=== PATIENT | male | born 1945 | race Caucasian/White ===

== ENCOUNTER 2020-10-05 22:22 | Inpatient (IN) | payer MEDICARE ==
[~2020-10-05] VITALS: Ht 182.8 cm; Wt 107.5 kg
[2020-10-05 23:46] LABS: BASO % 0.5 % (0.0-1.0); EOS # 0.4 10*3/uL (0.0-0.4); EOS % 4.8 % (1.0-4.0); HEMATOCRIT 36.8 % (42.0-52.0); LYMPH # 0.8 10*3/uL (1.3-4.4); LYMPH % 10.1 % (27.0-41.0); MEAN CELL VOLUME 96.6 fl (80.0-94.0); MEAN CORPUSCULAR HGB CONC 32.1 g/dl (33.0-37.0); MEAN PLATELET VOLUME 11.5 fl (9.6-12.3); MONO # 0.9 10*3/uL (0.1-1.0); NEUT # 5.6 10*3/uL (2.3-7.9); NEUT % 73.1 % (47.0-73.0); PLATELET COUNT AUTOMATED 178 10*3/uL (130-400); RED BLOOD COUNT 3.81 10*6/uL (4.50-5.90); RED CELL DISTRI WIDTH 13.6 % (0-14.5); WHITE BLOOD COUNT 7.7 10*3/uL (4.8-10.8)
[2020-10-05 23:56] LABS: INTERNATIONAL NORM RATIO 1.4 (2.0-3.5)
[2020-10-06] VITALS (10 sets, daily range): BP systolic 82–144; BP diastolic 44–99
[2020-10-06 00:06] LABS: CREATININE 1.62 mg/dL (0.70-1.30); POTASSIUM 4.8 mmol/L (3.5-5.1); TOTAL PROTEIN 6.2 gm/dL (6.4-8.2)
[2020-10-06 05:56] LABS: BASO % 0.4 % (0.0-1.0); EOS # 0.1 10*3/uL (0.0-0.4); EOS % 1.6 % (1.0-4.0); HEMATOCRIT 35.4 % (42.0-52.0); LYMPH # 0.7 10*3/uL (1.3-4.4); LYMPH % 7.7 % (27.0-41.0); MEAN CELL VOLUME 98.1 fl (80.0-94.0); MEAN CORPUSCULAR HGB 30.7 pg (27.0-31.0); MEAN CORPUSCULAR HGB CONC 31.4 g/dl (33.0-37.0); MEAN PLATELET VOLUME 12.3 fl (9.6-12.3); MONO # 1.1 10*3/uL (0.1-1.0); MONO % 12.9 % (3.0-9.0); NEUT # 6.6 10*3/uL (2.3-7.9); NEUT % 76.9 % (47.0-73.0); PLATELET COUNT AUTOMATED 157 10*3/uL (130-400); RED BLOOD COUNT 3.61 10*6/uL (4.50-5.90); RED CELL DISTRI WIDTH 13.5 % (0-14.5); WHITE BLOOD COUNT 8.6 10*3/uL (4.8-10.8)
[2020-10-06 06:12] LABS: ALBUMIN 2.8 gm/dl (3.1-4.5); CREATININE 1.41 mg/dL (0.70-1.30); POTASSIUM 4.5 mmol/L (3.5-5.1); TOTAL PROTEIN 5.8 gm/dL (6.4-8.2)
[2020-10-06 06:18] LABS: THYROID STIM HORMONE (HS) 2.1 uIU/ml (0.358-4.75)
[2020-10-07] VITALS (7 sets, daily range): BP systolic 82–119; BP diastolic 40–84
[2020-10-07 06:28] LABS: BASO % 0.1 % (0.0-1.0); HEMATOCRIT 30.6 % (42.0-52.0); LYMPH # 0.7 10*3/uL (1.3-4.4); LYMPH % 7.1 % (27.0-41.0); MEAN CELL VOLUME 97.8 fl (80.0-94.0); MEAN CORPUSCULAR HGB 30.7 pg (27.0-31.0); MEAN CORPUSCULAR HGB CONC 31.4 g/dl (33.0-37.0); MEAN PLATELET VOLUME 11.3 fl (9.6-12.3); MONO # 1.2 10*3/uL (0.1-1.0); MONO % 12.6 % (3.0-9.0); NEUT # 7.7 10*3/uL (2.3-7.9); NEUT % 79.6 % (47.0-73.0); PLATELET COUNT AUTOMATED 135 10*3/uL (130-400); RED BLOOD COUNT 3.13 10*6/uL (4.50-5.90); RED CELL DISTRI WIDTH 13.4 % (0-14.5); WHITE BLOOD COUNT 9.7 10*3/uL (4.8-10.8)
[2020-10-07 06:34] LABS: INTERNATIONAL NORM RATIO 1.4 (2.0-3.5)
[2020-10-08 06:54] LABS: BASO % 0.3 % (0.0-1.0); EOS # 0.2 10*3/uL (0.0-0.4); EOS % 1.8 % (1.0-4.0); HEMATOCRIT 29.1 % (42.0-52.0); LYMPH % 11.4 % (27.0-41.0); MEAN CORPUSCULAR HGB CONC 31.3 g/dl (33.0-37.0); MEAN PLATELET VOLUME 12.2 fl (9.6-12.3); MONO # 1.2 10*3/uL (0.1-1.0); MONO % 13.6 % (3.0-9.0); NEUT # 6.3 10*3/uL (2.3-7.9); NEUT % 72.4 % (47.0-73.0); PLATELET COUNT AUTOMATED 129 10*3/uL (130-400); RED BLOOD COUNT 2.94 10*6/uL (4.50-5.90); RED CELL DISTRI WIDTH 13.7 % (0-14.5); WHITE BLOOD COUNT 8.8 10*3/uL (4.8-10.8)
[2020-10-08 06:57] LABS: INTERNATIONAL NORM RATIO 1.2 (2.0-3.5)
[2020-10-08 12:00] VITALS: BP 126/52
[2020-10-08] MEDS ORDERED: ASPIRIN ADULT L81 M2 PO (13:12)
[2020-10-08] MEDS ORDERED: Percocet 325 MG1 TAB PO (13:12)
[2020-10-08] MEDS ORDERED: VITAMIN D350 MC2 PO (13:12)
[2020-10-08 16:00] VITALS: BP 150/65
== END 2020-10-08 17:48 | DRG 480 ==
LOC: ED 22:22 → EDHOLD 23:44 → 5E 23:44
PROVIDERS: Hospitalist; Internal Medicine; Orthopaedic Surgery; ADMIT Family Medicine; ATTEND Family Medicine
PROC: 0QH706Z Insertion of Intramedullary Internal Fixation Device into Left Upper Femur, Open Approach (ICD-10-PCS; principal; 2020-10-06)
DX: S72.142A Displaced intertrochanteric fracture of left femur, initial encounter for closed fracture (principal); N17.0 Acute kidney failure with tubular necrosis; E83.41 Hypermagnesemia; D53.9 Nutritional anemia, unspecified; M19.90 Unspecified osteoarthritis, unspecified site; I10 Essential (primary) hypertension; Z20.822 Contact with and (suspected) exposure to COVID-19; W18.39XA Other fall on same level, initial encounter; Y93.89 Activity, other specified; Y92.098 Other place in other non-institutional residence as the place of occurrence of the external cause; Z95.828 Presence of other vascular implants and grafts; I69.344 Monoplegia of lower limb following cerebral infarction affecting left non-dominant side; I25.2 Old myocardial infarction; Z87.442 Personal history of urinary calculi; Z82.49 Family history of ischemic heart disease and other diseases of the circulatory system; Z84.89 Family history of other specified conditions; Y99.8 Other external cause status

== ENCOUNTER → 2020-11-22 | Outpatient (CLI) | payer MEDICARE ==
[~2020-11-22] MED LIST: ASPIRIN ADULT L81 M2 PO; Percocet 325 MG1 TAB PO; VITAMIN D350 MC2 PO
== END | disposition home or self-care (01) ==
LOC: ORTHO 11:11
PROVIDERS: ATTEND Orthopaedic Surgery
DX: S72.142A Displaced intertrochanteric fracture of left femur, initial encounter for closed fracture (principal); X58.XXXA Exposure to other specified factors, initial encounter; Y93.89 Activity, other specified; Y92.89 Other specified places as the place of occurrence of the external cause; Y99.8 Other external cause status

== ENCOUNTER → 2021-01-13 | Outpatient (CLI) | payer MEDICARE | END | disposition home or self-care (01) | LOC: ORTHO 00:43 | PROVIDERS: ATTEND Orthopaedic Surgery | DX: I70.90 Unspecified atherosclerosis (principal); M25.562 Pain in left knee ==

== ENCOUNTER → 2021-05-05 | Outpatient (CLI) | payer MEDICARE | END | disposition home or self-care (01) | LOC: ORTHO 00:44 | PROVIDERS: ATTEND Orthopaedic Surgery | DX: S72.142D Displaced intertrochanteric fracture of left femur, subsequent encounter for closed fracture with routine healing (principal); X58.XXXD Exposure to other specified factors, subsequent encounter ==

== ENCOUNTER → 2021-05-14 | Outpatient (CLI) | payer MEDICARE | END | disposition home or self-care (01) | LOC: NM 09:31 | PROVIDERS: ATTEND Orthopaedic Surgery | DX: S72.142D Displaced intertrochanteric fracture of left femur, subsequent encounter for closed fracture with routine healing (principal); X58.XXXD Exposure to other specified factors, subsequent encounter ==

== ENCOUNTER 2024-01-27 05:15 | Emergency (ER) | payer MEDICARE ==
[~2024-01-27] VITALS: Ht 182.8 cm; Wt 79.4 kg
[~2024-01-27 05:15] MED LIST changes: +ALLOPURINOL300 MG PO; +AMLODIPINE BESYL5 MG PO; +ATORVASTATIN CA20 M1 PO; +BUPROPION HYDR150 M3 PO; +BUSPIRONE HCL30 MG PO; +FUROSEMIDE20 M1 PO; +HYDROCODONE-AC1 EAC2 PO; +OMNICEF300 MG PO; +Rocaltrol0.25 MCG PO; +Synthroid,Levo50 MCG PO; +TAMSULOSIN HCL0.4 MG PO; +VENLAFAXINE HY150 M2 PO
[2024-01-27 06:02] LABS: BASO % 0.6 % (0.0-1.0); EOS # 0.3 10*3/uL (0.0-0.4); EOS % 4.2 % (1.0-4.0); HEMATOCRIT 40.4 % (42.0-52.0); LYMPH # 0.9 10*3/uL (1.3-4.4); LYMPH % 14.2 % (27.0-41.0); MEAN CELL VOLUME 95.5 fl (80.0-94.0); MEAN CORPUSCULAR HGB 30.3 pg (27.0-31.0); MEAN CORPUSCULAR HGB CONC 31.7 g/dl (33.0-37.0); MEAN PLATELET VOLUME 11.9 fl (9.6-12.3); MONO # 0.8 10*3/uL (0.1-1.0); MONO % 11.5 % (3.0-9.0); NEUT # 4.5 10*3/uL (2.3-7.9); NEUT % 67.8 % (47.0-73.0); PLATELET COUNT AUTOMATED 199 10*3/uL (130-400); RED BLOOD COUNT 4.23 10*6/uL (4.50-5.90); RED CELL DISTRI WIDTH 14.6 % (0-14.5); WHITE BLOOD COUNT 6.6 10*3/uL (4.8-10.8)
[2024-01-27 06:04] LABS: POTASSIUM 4.3 mmol/L (3.4-5.1)
[2024-01-27] MEDS ORDERED: Ketorolac Tromethamine 15 MG/ML VIAL IV ONE (07:15)
[2024-01-27 07:59] LABS: ACT PARTIAL THROMBO TIME 31.5 SECONDS (20.0-32.1)
[2024-01-27 08:04] LABS: BILIRUBIN Negative (Negative); BLOOD 3+ (Negative); GLUCOSE Negative (Negative); KETONE Trace (Negative); NITRITE Negative (Negative); PH 6.5 (4.5-8.0); SPECIFIC GRAVITY 1.025 (1.001-1.030)
[2024-01-27 08:05] LABS: CLARITY Turbid (Clear); COLOR Red (Yellow); LEUKO ESTERASE Trace (Negative)
[2024-01-27 08:31] LABS: RBC TNTC rbc/hpf (0-2)
[2024-01-27] MEDS ORDERED: BUMETANIDE 1 MG/4 ML VIAL IV ONE (10:10)
[2024-01-27] MEDS ORDERED: NITROGLYCERIN 1 IN PACKET T ONE (10:10)
[2024-01-27 10:29] LABS: HEMATOCRIT 38.3 % (42.0-52.0)
== END 2024-01-27 19:23 | disposition home or self-care (01) ==
LOC: ED 05:15
PROVIDERS: Emergency Medicine; Internal Medicine
DX: R31.9 Hematuria, unspecified (principal); Z98.890 Other specified postprocedural states; Z95.5 Presence of coronary angioplasty implant and graft; I10 Essential (primary) hypertension; I25.2 Old myocardial infarction; M19.90 Unspecified osteoarthritis, unspecified site

== ENCOUNTER 2024-07-07 10:57 | Emergency (ER) | payer MEDICARE ==
[~2024-07-07] VITALS: Wt 79.4 kg
[2024-07-07] MEDS ORDERED: MORPHINE Sulfate 2 MG/ML SYR IV ONE (11:00)
[2024-07-07] MEDS ORDERED: Ondansetron Hydrochloride 4 MG/2 ML VIAL IV ONE (11:00)
[2024-07-07 11:15] LABS: BASO % 0.2 % (0.0-1.0); EOS # 0.1 10*3/uL (0.0-0.4); EOS % 0.3 % (1.0-4.0); HEMATOCRIT 39.9 % (42.0-52.0); MEAN CELL VOLUME 91.9 fl (80.0-94.0); MEAN CORPUSCULAR HGB 27.9 pg (27.0-31.0); MEAN CORPUSCULAR HGB CONC 30.3 g/dl (33.0-37.0); MEAN PLATELET VOLUME 11.6 fl (9.6-12.3); MONO # 1.5 10*3/uL (0.1-1.0); MONO % 7.4 % (3.0-9.0); NEUT # 18.1 10*3/uL (2.3-7.9); PLATELET COUNT AUTOMATED 218 10*3/uL (130-400); RED BLOOD COUNT 4.34 10*6/uL (4.50-5.90); RED CELL DISTRI WIDTH 16.3 % (0-14.5); WHITE BLOOD COUNT 20.3 10*3/uL (4.8-10.8)
[2024-07-07 11:41] LABS: POTASSIUM 5.2 mmol/L (3.4-5.1)
[2024-07-07] MEDS ORDERED: SODIUM CHLORIDE 0.9% 500 ML IV ONE (12:35)
[2024-07-07] MEDS ORDERED: cefTRIAXone Sodium 1 GM/10 ML SYR IV ONE (12:35)
[2024-07-07 13:13] LABS: BILIRUBIN Negative (Negative); BLOOD 1+ (Negative); CLARITY Cloudy (Clear); COLOR Yellow (Yellow); GLUCOSE Negative (Negative); KETONE Trace (Negative); LEUKO ESTERASE 2+ (Negative); NITRITE Negative (Negative); PH 6.5 (4.5-8.0); SPECIFIC GRAVITY 1.015 (1.001-1.030)
[2024-07-07 13:23] LABS: BACTERIA 4+; WBC TNTC wbc/hpf (0-5)
== END 2024-07-07 18:36 | disposition short-term general hospital (02) ==
LOC: ED 10:57
PROVIDERS: Emergency Medicine
DX: A41.9 Sepsis, unspecified organism (principal); N13.2 Hydronephrosis with renal and ureteral calculous obstruction; N17.9 Acute kidney failure, unspecified; N12 Tubulo-interstitial nephritis, not specified as acute or chronic; E78.5 Hyperlipidemia, unspecified; I48.91 Unspecified atrial fibrillation; I11.0 Hypertensive heart disease with heart failure; I50.9 Heart failure, unspecified; I25.2 Old myocardial infarction; Z79.899 Other long term (current) drug therapy; Z79.82 Long term (current) use of aspirin; Z98.890 Other specified postprocedural states; Z86.73 Personal history of transient ischemic attack (TIA), and cerebral infarction without residual deficits

== ENCOUNTER 2024-11-15 09:18 | Observation (INO) | payer MEDICARE ==
[~2024-11-15] VITALS: Ht 182.8 cm; Wt 66.4 kg
[~2024-11-15 09:18] MED LIST changes: +ALLOPURINOL300 MG PEG; -ALLOPURINOL300 MG PO; +ATORVASTATIN CA20 M1 PEG; -ATORVASTATIN CA20 M1 PO; +BUPROPION HYDR150 M3 PEG; -BUPROPION HYDR150 M3 PO; +FUROSEMIDE20 M1 PEG; -FUROSEMIDE20 M1 PO; +Synthroid,Levo50 MCG PEG; -Synthroid,Levo50 MCG PO; +VENLAFAXINE HY150 M2 PEG; -VENLAFAXINE HY150 M2 PO
[2024-11-15] MEDS ORDERED: IOHEXOL 300 MG/ML 100 ML VIAL IV ONE (09:30)
[2024-11-15 09:32] VITALS: BP 114/68
[2024-11-15 09:46] LABS: BASO # 0.0 10*3/uL (0.0-0.1); BASO % 0.4 % (0.0-1.0); EOS # 0.2 10*3/uL (0.0-0.4); EOS % 2.9 % (1.0-4.0); MEAN CELL VOLUME 93.2 fl (80.0-94.0); MEAN CORPUSCULAR HGB 29.5 pg (27.0-31.0); MEAN PLATELET VOLUME 13.0 fl (9.6-12.3); MONO # 0.7 10*3/uL (0.1-1.0); MONO % 9.4 % (3.0-9.0); NEUT # 5.3 10*3/uL (2.3-7.9); NEUT % 74.3 % (47.0-73.0); NUCLEATED RED BLOOD CELL 0.0 % (0.0-0.0); NUCLEATED RED BLOOD CELL 0.0 10*3/uL (0.0-0.0); PLATELET COUNT AUTOMATED 152 10*3/uL (130-400); RED CELL DISTRI WIDTH 15.1 % (0-14.5)
[2024-11-15] MEDS ORDERED: IOHEXOL 300 MG/ML 100 ML VIAL ONE (09:51)
[2024-11-15 10:11] LABS: BUN 31.0 mg/dl (9-23); SGPT/ALT 9.0 U/L (5-49)
[2024-11-15] MEDS ORDERED: DIATRIZOATE MEG/DIATRIZO. SOD 120 ML BOT PO ONE (11:05)
[2024-11-15] MEDS ORDERED: DIATRIZOATE MEG/DIATRIZO. SOD 120 ML BOT ONE (11:37)
[2024-11-15] MEDS ORDERED: HYDROCODONE-AC1 EAC1 PEG (14:20)
[2024-11-15] MEDS ORDERED: BACLOFEN PEG (14:20)
[2024-11-15] MEDS ORDERED: CLARITIN10 MG PEG (14:21)
[2024-11-15] MEDS ORDERED: NEURONTIN100 MG PEG (14:21)
[2024-11-15] MEDS ORDERED: LANSOPRAZO15 MG/5 ML PEG (14:22)
[2024-11-15] MEDS ORDERED: MIDODRINE HCL10 MG PEG (14:22)
[2024-11-15] MEDS ORDERED: SENSIPAR30 MG PEG (14:23)
[2024-11-15] MEDS ORDERED: SODIUM CHLORIDE 0.9% 1,000 ML IV ONE ×3 (17:10→23:25)
[2024-11-15 17:44] VITALS: BP 138/92
[2024-11-15] MEDS ORDERED: ACETAMINOPHEN 650 MG SUPP R PRN (22:45)
[2024-11-15] MEDS ORDERED: BISACODYL 10 MG SUPP R PRN (22:45)
[2024-11-15] MEDS ORDERED: Ondansetron Hydrochloride 4 MG/2 ML VIAL IV PRN (22:45)
[2024-11-15] MEDS ORDERED: Midazolam Hydrochloride 2 MG/2 ML VIAL IV ONE (23:00)
[2024-11-15 23:26] VITALS: BP 107/67
[2024-11-16 04:26] LABS: BASO # 0.0 10*3/uL (0.0-0.1); BASO % 0.5 % (0.0-1.0); EOS # 0.2 10*3/uL (0.0-0.4); EOS % 3.0 % (1.0-4.0); MEAN CELL VOLUME 93.9 fl (80.0-94.0); MEAN CORPUSCULAR HGB 29.4 pg (27.0-31.0); MEAN PLATELET VOLUME 12.4 fl (9.6-12.3); MONO # 0.7 10*3/uL (0.1-1.0); MONO % 11.4 % (3.0-9.0); NEUT # 4.1 10*3/uL (2.3-7.9); NEUT % 69.5 % (47.0-73.0); NUCLEATED RED BLOOD CELL 0.0 % (0.0-0.0); NUCLEATED RED BLOOD CELL 0.0 10*3/uL (0.0-0.0); PLATELET COUNT AUTOMATED 135 10*3/uL (130-400); RED CELL DISTRI WIDTH 15.0 % (0-14.5)
[2024-11-16 04:36] LABS: ACT PARTIAL THROMBO TIME 27.4 SECONDS (20.0-32.1)
[2024-11-16 04:46] LABS: BUN 34.0 mg/dl (9-23); SGPT/ALT 10.0 U/L (5-49)
[2024-11-16 05:16] VITALS: BP 142/89
[2024-11-16 07:36] VITALS: BP 132/84
[2024-11-16] MEDS ORDERED: SODIUM CHLORIDE 0.45% 1,000 ML IV SCH (08:55)
[2024-11-16] MEDS ORDERED: HEPARIN SODIUM 5,000 UNIT/ML VIAL SC SCH (10:00)
[2024-11-16 10:07] LABS: BILIRUBIN Negative (Negative); BLOOD 2+ (Negative); CLARITY Turbid (Clear); COLOR Yellow (Yellow); KETONE 1+ (Negative); LEUKO ESTERASE 3+ (Negative); NITRITE Negative (Negative); PH 6.5 (4.5-8.0); SPECIFIC GRAVITY 1.020 (1.001-1.030); UROBILINOGEN 0.2 E.U./dl (0.0-1.0)
[2024-11-16 10:21] VITALS: BP 133/81
[2024-11-16 10:56] LABS: BACTERIA 3+
[2024-11-16 17:15] VITALS: BP 135/85
[2024-11-16] MEDS ORDERED: Midazolam Hydrochloride 2 MG/2 ML VIAL IV ONE (20:25)
[2024-11-16 21:12] VITALS: BP 150/90
[2024-11-17 02:29] VITALS: BP 145/86
[2024-11-17 07:04] VITALS: BP 129/93
== END 2024-11-17 09:45 | disposition short-term general hospital (02) ==
LOC: ED 09:18 → EDHOLD 21:36
PROVIDERS: Internal Medicine; ADMIT Internal Medicine; ATTEND Internal Medicine
DX: K94.23 Gastrostomy malfunction (principal); N17.0 Acute kidney failure with tubular necrosis; R00.1 Bradycardia, unspecified; I63.9 Cerebral infarction, unspecified; I44.1 Atrioventricular block, second degree; I21.9 Acute myocardial infarction, unspecified; I12.0 Hypertensive chronic kidney disease with stage 5 chronic kidney disease or end stage renal disease; N18.30 Chronic kidney disease, stage 3 unspecified; D63.1 Anemia in chronic kidney disease; Q40.0 Congenital hypertrophic pyloric stenosis; I48.91 Unspecified atrial fibrillation; Z95.828 Presence of other vascular implants and grafts; Z98.890 Other specified postprocedural states; Z79.899 Other long term (current) drug therapy

== ENCOUNTER 2025-01-15 00:54 | Emergency (ER) | payer MEDICARE ==
[~2025-01-15] VITALS: Ht 182.8 cm; Wt 68.0 kg
[~2025-01-15 00:54] MED LIST changes: -ALLOPURINOL300 MG PEG; +ALLOPURINOL300 MG PO; +ASPIRIN ADULT L81 M1 PO; -ATORVASTATIN CA20 M1 PEG; +ATORVASTATIN CA20 M1 PO; +BACLOFEN PO; -BUPROPION HYDR150 M3 PEG; +BUPROPION HYDR150 M3 PO; +BUSPIRONE30 MG PO; +CETIRIZINE HYDRO5 M2 PO; +CLARITIN10 MG PO; -FUROSEMIDE20 M1 PEG; +FUROSEMIDE20 M1 PO; +HYDROCODONE-AC1 EAC1 PEG; +LANSOPRAZO15 MG/5 ML PO; +MELATONIN5 M1 PO; +METOPROLOL SUC100 M1 PO; +METOPROLOL TART50 M1 PO; +MIDODRINE HCL10 MG PO; +MULTIVITAMIN1 EACH PO; +NEURONTIN100 MG PEG; +SENSIPAR30 MG PO; -Synthroid,Levo50 MCG PEG; +Synthroid,Levo50 MCG PO; +TRAZODONE50 MG PO; +VALSARTAN40 MG PO; -VENLAFAXINE HY150 M2 PEG; +VENLAFAXINE HY150 M2 PO
[2025-01-15 01:26] LABS: BASO # 0.0 10*3/uL (0.0-0.1); BASO % 0.5 % (0.0-1.0); EOS # 0.2 10*3/uL (0.0-0.4); EOS % 2.9 % (1.0-4.0); MEAN CELL VOLUME 96.6 fl (80.0-94.0); MEAN CORPUSCULAR HGB 30.5 pg (27.0-31.0); MEAN PLATELET VOLUME 10.9 fl (9.6-12.3); MONO # 0.7 10*3/uL (0.1-1.0); MONO % 8.8 % (3.0-9.0); NEUT # 6.3 10*3/uL (2.3-7.9); NEUT % 74.6 % (47.0-73.0); NUCLEATED RED BLOOD CELL 0.0 % (0.0-0.0); NUCLEATED RED BLOOD CELL 0.0 10*3/uL (0.0-0.0); PLATELET COUNT AUTOMATED 193 10*3/uL (130-400); RED CELL DISTRI WIDTH 16.2 % (0-14.5)
[2025-01-15 01:46] LABS: BUN 15 mg/dl (9-23)
[2025-01-15] MEDS ORDERED: LORazepam 0.5 MG TAB PO ONE (04:05)
== END 2025-01-15 04:30 | disposition home or self-care (01) ==
LOC: ED 00:54
PROVIDERS: Internal Medicine
DX: I48.91 Unspecified atrial fibrillation (principal); D53.9 Nutritional anemia, unspecified; I12.9 Hypertensive chronic kidney disease with stage 1 through stage 4 chronic kidney disease, or unspecified chronic kidney disease; N18.31 Chronic kidney disease, stage 3a; I25.2 Old myocardial infarction; Z79.899 Other long term (current) drug therapy; Z79.82 Long term (current) use of aspirin; Z98.890 Other specified postprocedural states; Z98.61 Coronary angioplasty status

== ENCOUNTER 2025-01-26 06:38 | Inpatient (IN) | payer MEDICARE ==
[~2025-01-26] VITALS: Ht 182.8 cm; Wt 63.5 kg
[~2025-01-26 06:38] MED LIST changes: +VENLAFAXINE HY150 MG PO
[2025-01-26 06:43] VITALS: BP 137/73
[2025-01-26 07:04] LABS: BILIRUBIN Negative (Negative); BLOOD 3+ (Negative); CLARITY Turbid (Clear); COLOR Orange (Yellow); KETONE Negative (Negative); LEUKO ESTERASE 3+ (Negative); NITRITE Negative (Negative); PH 6.0 (4.5-8.0); SPECIFIC GRAVITY 1.010 (1.001-1.030); UROBILINOGEN 0.2 E.U./dl (0.0-1.0)
[2025-01-26 07:18] LABS: BASO # 0.0 10*3/uL (0.0-0.1); BASO % 0.2 % (0.0-1.0); EOS # 0.3 10*3/uL (0.0-0.4); EOS % 2.9 % (1.0-4.0); MEAN CELL VOLUME 100.3 fl (80.0-94.0); MEAN CORPUSCULAR HGB 30.7 pg (27.0-31.0); MEAN PLATELET VOLUME 11.3 fl (9.6-12.3); MONO # 1.0 10*3/uL (0.1-1.0); MONO % 9.8 % (3.0-9.0); NEUT # 7.5 10*3/uL (2.3-7.9); NEUT % 77.5 % (47.0-73.0); NUCLEATED RED BLOOD CELL 0.0 % (0.0-0.0); NUCLEATED RED BLOOD CELL 0.0 10*3/uL (0.0-0.0); PLATELET COUNT AUTOMATED 161 10*3/uL (130-400); RED CELL DISTRI WIDTH 15.9 % (0-14.5)
[2025-01-26 07:33] LABS: BACTERIA 4+; RBC TNTC rbc/hpf (0-2); WBC TNTC wbc/hpf (0-5)
[2025-01-26 07:45] LABS: BUN 16 mg/dl (9-23)
[2025-01-26] MEDS ORDERED: AZITHROMYCIN 250 ML IV ONE (08:05)
[2025-01-26] MEDS ORDERED: METOPROLOL SUCC25 M2 PO (09:02)
[2025-01-26 09:03] VITALS: BP 128/79
[2025-01-26 10:05] VITALS: BP 116/70
[2025-01-26] MEDS ORDERED: Ondansetron Hydrochloride 4 MG/2 ML VIAL IV PRN (10:25)
[2025-01-26] MEDS ORDERED: BISACODYL 10 MG SUPP R PRN (10:25)
[2025-01-26] MEDS ORDERED: BISACODYL 5 MG TAB PO PRN (10:25)
[2025-01-26] MEDS ORDERED: ACETAMINOPHEN 325 MG TAB PO PRN (10:25)
[2025-01-26] MEDS ORDERED: ACETAMINOPHEN 650 MG SUPP R PRN (10:25)
[2025-01-26 14:40] VITALS: BP 123/68
[2025-01-26] MEDS ORDERED: Albuterol Sulf/Ipratropium 3 ML VIAL NEB SCH (15:05)
[2025-01-26 16:00] VITALS: BP 129/72
[2025-01-26 20:00] VITALS: BP 116/70
[2025-01-27] VITALS: BP 123/83
[2025-01-27] MEDS ORDERED: FOAM BANDAGE 1 EACH BANDAGE T ONE ×2 (00:15→14:42)
[2025-01-27] MEDS ORDERED: FOAM BANDAGE HEEL T ONE (00:15)
[2025-01-27 06:42] LABS: BASO # 0.0 10*3/uL (0.0-0.1); BASO % 0.3 % (0.0-1.0); EOS # 0.1 10*3/uL (0.0-0.4); EOS % 1.8 % (1.0-4.0); MEAN CELL VOLUME 99.7 fl (80.0-94.0); MEAN CORPUSCULAR HGB 31.3 pg (27.0-31.0); MEAN PLATELET VOLUME 12.2 fl (9.6-12.3); MONO # 0.8 10*3/uL (0.1-1.0); MONO % 10.8 % (3.0-9.0); NEUT # 5.7 10*3/uL (2.3-7.9); NEUT % 77.3 % (47.0-73.0); NUCLEATED RED BLOOD CELL 0.0 % (0.0-0.0); NUCLEATED RED BLOOD CELL 0.0 10*3/uL (0.0-0.0); PLATELET COUNT AUTOMATED 142 10*3/uL (130-400); RED CELL DISTRI WIDTH 15.9 % (0-14.5)
[2025-01-27 07:39] LABS: BUN 20 mg/dl (9-23); FREE T4 0.92 ng/dl (0.89-1.76); SGPT/ALT 8 U/L (5-49)
[2025-01-27 08:00] VITALS: BP 123/76
[2025-01-27] MEDS ORDERED: METOPROLOL SUCCINATE XR 25 MG TAB PO SCH (10:00)
[2025-01-27 12:00] VITALS: BP 135/85
[2025-01-27 15:53] VITALS: BP 101/60
[2025-01-27] MEDS ORDERED: FOAM BANDAGE 5X5 T ONE (16:23)
[2025-01-27 20:00] VITALS: BP 130/81
[2025-01-28] VITALS: BP 144/76
[2025-01-28 06:29] LABS: BASO # 0.0 10*3/uL (0.0-0.1); BASO % 0.5 % (0.0-1.0); EOS # 0.3 10*3/uL (0.0-0.4); EOS % 4.4 % (1.0-4.0); MEAN CELL VOLUME 99.4 fl (80.0-94.0); MEAN CORPUSCULAR HGB 31.0 pg (27.0-31.0); MEAN PLATELET VOLUME 11.7 fl (9.6-12.3); MONO # 0.8 10*3/uL (0.1-1.0); MONO % 10.9 % (3.0-9.0); NEUT # 5.4 10*3/uL (2.3-7.9); NEUT % 73.4 % (47.0-73.0); NUCLEATED RED BLOOD CELL 0.0 % (0.0-0.0); NUCLEATED RED BLOOD CELL 0.0 10*3/uL (0.0-0.0); PLATELET COUNT AUTOMATED 158 10*3/uL (130-400); RED CELL DISTRI WIDTH 15.8 % (0-14.5)
[2025-01-28 08:00] VITALS: BP 151/83
[2025-01-28] MEDS ORDERED: busPIRone Hydrochloride 15 MG TAB PO SCH (10:00)
[2025-01-28] MEDS ORDERED: Venlafaxine Hydrochloride 75 MG CAP PO SCH (10:00)
[2025-01-28 12:00] VITALS: BP 139/69
[2025-01-28 16:00] VITALS: BP 127/95
[2025-01-28 20:00] VITALS: BP 134/83
[2025-01-29] VITALS: BP 145/78
[2025-01-29 06:56] LABS: BASO # 0.0 10*3/uL (0.0-0.1); BASO % 0.6 % (0.0-1.0); EOS # 0.4 10*3/uL (0.0-0.4); EOS % 5.8 % (1.0-4.0); MEAN CELL VOLUME 99.0 fl (80.0-94.0); MEAN CORPUSCULAR HGB 30.8 pg (27.0-31.0); MEAN PLATELET VOLUME 11.4 fl (9.6-12.3); MONO # 0.8 10*3/uL (0.1-1.0); MONO % 12.2 % (3.0-9.0); NEUT # 4.5 10*3/uL (2.3-7.9); NEUT % 68.5 % (47.0-73.0); NUCLEATED RED BLOOD CELL 0.0 % (0.0-0.0); NUCLEATED RED BLOOD CELL 0.0 10*3/uL (0.0-0.0); PLATELET COUNT AUTOMATED 173 10*3/uL (130-400); RED CELL DISTRI WIDTH 15.8 % (0-14.5)
[2025-01-29 08:00] VITALS: BP 151/89
[2025-01-29 12:00] VITALS: BP 132/91
[2025-01-29] MEDS ORDERED: Menthol/Zinc Oxide 4 GM THIN T PRN (14:35)
[2025-01-29 16:00] VITALS: BP 137/78
[2025-01-29 20:00] VITALS: BP 142/90
[2025-01-29] MEDS ORDERED: Menthol/Zinc Oxide 4 GM THIN T SCH (22:00)
[2025-01-30] VITALS: BP 116/86
[2025-01-30 08:00] VITALS: BP 153/84
[2025-01-30] MEDS ORDERED: TRAZODONE50 MG PO (09:04)
[2025-01-30] MEDS ORDERED: AMOX-CLAV 875-1 EACH PO (10:57)
[2025-01-30 12:00] VITALS: BP 146/81
== END 2025-01-30 14:25 | disposition home or self-care (01) | DRG 177 ==
LOC: ED 06:38 → 5E 08:12 → EDHOLD 08:12 → 5E 14:15
PROVIDERS: Internal Medicine; Registered Nurse; ADMIT Internal Medicine; ATTEND Internal Medicine
DX: J69.0 Pneumonitis due to inhalation of food and vomit (principal); G93.41 Metabolic encephalopathy; I50.22 Chronic systolic (congestive) heart failure; I13.0 Hypertensive heart and chronic kidney disease with heart failure and stage 1 through stage 4 chronic kidney disease, or unspecified chronic kidney disease; I48.11 Longstanding persistent atrial fibrillation; N18.31 Chronic kidney disease, stage 3a; E78.5 Hyperlipidemia, unspecified; Z66 Do not resuscitate; E03.9 Hypothyroidism, unspecified; L89.152 Pressure ulcer of sacral region, stage 2; L89.322 Pressure ulcer of left buttock, stage 2; L89.312 Pressure ulcer of right buttock, stage 2; S51.012A Laceration without foreign body of left elbow, initial encounter; Z79.899 Other long term (current) drug therapy; Z79.01 Long term (current) use of anticoagulants; Z79.2 Long term (current) use of antibiotics; Z93.1 Gastrostomy status; Z95.1 Presence of aortocoronary bypass graft; Z82.49 Family history of ischemic heart disease and other diseases of the circulatory system; Z82.3 Family history of stroke; Z86.73 Personal history of transient ischemic attack (TIA), and cerebral infarction without residual deficits; I25.2 Old myocardial infarction; Z71.89 Other specified counseling; X58.XXXA Exposure to other specified factors, initial encounter; Y93.89 Activity, other specified; Y92.89 Other specified places as the place of occurrence of the external cause; Y99.8 Other external cause status